=== PATIENT | male | born 1940 | race Caucasian/White ===

== ENCOUNTER 2016-11-14 20:26 | Emergency (ER) | payer MEDICARE, OTHER ==
[2016-11-14] MEDS ORDERED: ONDANSETRON ODT 8 MG TAB.RAPDIS PO ONE (20:53)
--- NOTE | 2016-11-14 21:00 | ER PHYSICIAN DOCUMENTATION ---
Physician Documentation [facility] Name:Silverio Hussein Age:76 yrs Sex:Male :1940 Arrival Date:11/14/2016 Time:20:26 Bed4 Private MD: Ethan Francis Disposition: 11/14/16 20:53 Discharged to Home/Self Care. Impression: Nausea. - Condition is Good. - Discharge Instructions: VOMITING (8y-Adult). - Prescriptions for Zofran 4 mg Oral Tablet - take 1 tablet by ORAL route every 12 hours .; 20 tablet. - Medical Reconciliation form form. - Follow up: Private Physician; When: As needed; Reason: If symptoms return, Worsening of condition, Continuance of care. - Problem is new. - Symptoms are resolved. HPI: 11/14 20:50 This 76 yrs old Male presents to ER via Private Vehicle with complaints of sc Nausea/Vomiting. 20:50 The patient presents to the emergency department with nausea, with after wrist surgery, sc nausea with vicodin. Onset: The symptom(s)/episode began/occurred today. Possible causes: meds. Associated signs and symptoms: The patient has no apparent associated signs or symptoms. Historical: - Allergies: No known drug Allergies; - Home Meds: 1. Vicodin ES Oral 2. Niacin Oral 3. Metoprolol Tartrate Oral - PMHx: Hypertension; - PSHx: right wrist; - Ebola Screening: : Patient negative for fever greater than or equal to 101.5 degrees Fahrenheit, and additional compatible Ebola Virus Disease symptoms. Patient denies exposure to infectious person. Patient denies travel to an Ebola-affected area in the 21 days before illness onset. No symptoms or risks identified at this time. . - Immunization history: Flu Vaccine < 1 year. - Social history: Smoking status: Patient states was never smoker of tobacco. Patient/guardian denies using alcohol, street drugs, IV drugs, marijuana. ROS: 20:51 Constitutional: Negative for fever, chills, and weight loss. sc Eyes: Negative for injury, pain, redness, and discharge. Neck: Negative for injury, pain, and swelling. Cardiovascular: Negative for chest pain, palpitations, and edema. Respiratory: Negative for shortness of breath, cough, wheezing, and pleuritic chest pain. Back: Negative for injury and pain. Skin: Negative for injury, rash, and discoloration. 20:51 Neuro: Negative for headache, weakness, numbness, tingling, and seizure. sc 20:51 Abdomen/GI: Positive for nausea, Negative for abdominal pain, vomiting, diarrhea, constipation, abdominal cramps, abdominal distension. 20:51 MS/extremity: Negative for erythema, paresthesias. Exam: Constitutional: This is a well developed, well nourished patient who is awake, alert, and in no acute distress. Head/Face: Normocephalic, atraumatic. Eyes: Pupils equal round and reactive to light, extra-ocular motions intact. Lids and lashes normal. Conjunctiva and sclera are non-icteric and not injected. Cornea within normal limits. Periorbital areas with no swelling, redness, or edema. Cardiovascular: Regular rate and rhythm with a normal S1 and S2. No gallops, murmurs, or rubs. Normal PMI, no JVD. No pulse deficits. Respiratory: Lungs have equal breath sounds bilaterally, clear to auscultation and percussion. No rales, rhonchi or wheezes noted. No increased work of breathing, no retractions or nasal flaring. Abdomen/GI: Soft, non-tender, with normal bowel sounds. No distension or tympany. No guarding or rebound. No evidence of tenderness throughout. Back: No spinal tenderness. No costovertebral tenderness. Full range of motion. 20:52 Skin: Warm, dry with normal turgor. Normal color with no rashes, no lesions, and no sc evidence of cellulitis. 20:54 Skin: Exam negative for acute changes. md Vital Signs: 20:34 BP 130 / 60 (auto/); sc1 20:35 Pulse Ox 92% ; sc1 20:35 Pulse 63; Resp 16; Temp 97.9; sc1 MDM: 20:30 Patient medically screened. md 20:52 Differential diagnosis: med side effect, no sxs compartment syndrome. Data reviewed: md vital signs, nurses notes, old medical records, and as a result, I will continue to observe the patient. Dispensed Medications: 20:40 Drug: Zofran 8 mg; Route: PO; sc1 20:59 Follow up: Response: No adverse reaction; Nausea is decreased md1 20:59 Drug: Zofran 1 tablet; Route: PO; sc1 Signatures: Gissel Haile RN RN sc1 Ethan Eagle MD MD md
--- NOTE | 2016-11-14 21:00 | ER NURSING DOCUMENTATION ---
Nurse's Notes [facility] ([place], [place]) Name:Silverio Hussein Age:76 yrs Sex:Male :1940 Arrival Date:11/14/2016 Time:20:26 Bed4 Private MD: Diagnosis:Nausea Presentation: 11/14 20:36 Presenting complaint: Patient states: had surgery this morning and has had nausea all sc1 day. Vomited 4-5 times. Transition of care: Home. 20:36 Method Of Arrival: Private Vehicle sc1 20:36 Acuity: DANIELLA 4 sc1 Triage Assessment: 20:42 General: Appears in no apparent distress, well developed, well nourished, well groomed, sc1 Behavior is cooperative, pleasant. Pain: Denies pain. GI: Reports nausea. Historical: - Allergies: No known drug Allergies; - Home Meds: 1. Vicodin ES Oral 2. Niacin Oral 3. Metoprolol Tartrate Oral - PMHx: Hypertension; - PSHx: right wrist; - Ebola Screening: : Patient negative for fever greater than or equal to 101.5 degrees Fahrenheit, and additional compatible Ebola Virus Disease symptoms. Patient denies exposure to infectious person. Patient denies travel to an Ebola-affected area in the 21 days before illness onset. No symptoms or risks identified at this time. . - Immunization history: Flu Vaccine < 1 year. - Social history: Smoking status: Patient states was never smoker of tobacco. Patient/guardian denies using alcohol, street drugs, IV drugs, marijuana. Screenin:43 Infectious Disease Risk None. Abuse screen: Denies threats or abuse. Nutritional sc1 screening: No deficits noted. Vital Signs: 20:34 BP 130 / 60 (auto/); sc1 20:35 Pulse Ox 92% ; sc1 20:35 Pulse 63; Resp 16; Temp 97.9; sc1 ED Course: 20:28 Patient arrived in ED. dp 20:30 Ethan Eagle MD is Attending Physician. sc 20:39 Triage completed. sc1 20:42 Notified ED Physician of patient's arrival and chief complaint. Dr. Pérez. Arm band sc1 placed on Bed in low position Call Light in Reach HOB Elevated. Administered Medications: 20:40 Drug: Zofran 8 mg; Route: PO; sc1 20:59 Follow up: Response: No adverse reaction; Nausea is decreased [facility] [place] 20:59 Drug: Zofran 1 tablet; Route: PO; [facility] [place] Outcome: 20:53 Discharge ordered by . ga 21:00 Patient left the ED. [facility] [place] Signatures: Gissel Haile RN RN ga1 Ethan Eagle MD MD sc [place], Denise dp
[2016-11-14] MEDS ORDERED: ONDANSETRON ODT PREPAC 4 MG TAB.RAPDIS PO ONE (21:05)
== END 2016-11-14 21:00 | disposition home or self-care (01) ==
LOC: ER 20:26
DX: R11.0 Nausea (principal); Z98.890 Other specified postprocedural states; I10 Essential (primary) hypertension; Z79.899 Other long term (current) drug therapy
CPT/HCPCS: 99282